=== PATIENT | female | born 1935 | race Caucasian/White ===

== ENCOUNTER 2019-09-11 18:21 | Observation (INO) | payer MEDICARE, BC ==
[2019-09-11 18:58] LABS: CHLORIDE,CL 104 mEq/L (98-106); SODIUM,NA 139 mEq/L (136-145)
--- NOTE | 2019-09-11 19:16 | EDM.PDOC ---
ED HPI GENERAL MEDICAL PROBLEM - General Chief Complaint: General Stated Complaint: dizzy Time Seen by Provider: 09/11/19 18:40 Source of Information: Reports: Patient History Limitations: Reports: Altered Mental Status - History of Present Illness INITIAL COMMENTS - FREE TEXT/NARRATIVE: Patient presents to ER with complaints of weakness, nausea/vomiting and confusion. Daughter states she has not been herself today. She vomited this am , eating minimal through the day, and is unsteady. Patient complains of feeling "fuzzy" in the head. Not aware of any fevers. Denies burning with urination. No abdominal pain. No diarrhea. Denies chest pain or shortness of breath. Daughter relates she had an appointment in the morning but was getting more confused as the day wore on. Onset: Gradual Duration: Day(s): Location: Reports: Generalized Associated Symptoms: Reports: Confusion, Loss of Appetite, Nausea/Vomiting, Weakness. Denies: Chest Pain, Cough, Fever/Chills, Shortness of Breath - Related Data Allergies Allergy/AdvReac Type Severity Reaction Status Date / Time Penicillins Allergy Hives Verified 09/11/19 18:29 Tetanus Vaccines and Toxoid Allergy Rash Verified 09/11/19 18:29 [Tetanus Vaccines & Toxoid] Past Medical History HEENT History: Reports: Cataract, Hard of Hearing Cardiovascular History: Reports: High Cholesterol, Hypertension Endocrine/Metabolic History: Reports: Diabetes, Type II, Hypothyroidism - Past Surgical History GI Surgical History: Reports: Appendectomy, Cholecystectomy Social & Family History - Family History Family Medical History: Noncontributory - Tobacco Use Smoking Status *Q: Never Smoker Second Hand Smoke Exposure: No ED ROS GENERAL - Review of Systems Review Of Systems: See Below Constitutional: Reports: Chills, Malaise, Weakness, Fatigue, Decreased Appetite. Denies: Fever HEENT: Reports: No Symptoms Respiratory: Denies: Shortness of Breath, Cough Cardiovascular: Reports: Edema. Denies: Chest Pain, Lightheadedness Endocrine: Reports: Fatigue GI/Abdominal: Reports: Nausea, Vomiting. Denies: Abdominal Pain, Constipation, Diarrhea : Denies: Dysuria Musculoskeletal: Reports: No Symptoms Skin: Reports: No Symptoms Neurological: Reports: Confusion, Weakness Psychiatric: Reports: Confusion ED EXAM, GENERAL - Physical Exam Exam: See Below Exam Limited By: Altered Mental Status General Appearance: Alert, WD/WN, No Apparent Distress Ears: Normal External Exam, Normal TMs Nose: Normal Inspection, Normal Mucosa, No Blood Throat/Mouth: Normal Inspection, Normal Oropharynx Head: Normocephalic Neck: Normal Inspection, Supple, Non-Tender Respiratory/Chest: No Respiratory Distress, Lungs Clear, Normal Breath Sounds Cardiovascular: Regular Rate, Rhythm GI/Abdominal: Normal Bowel Sounds, Soft, Non-Tender Extremities: Normal Inspection, Pedal Edema (1+ to left lower extremity) Skin Exam: Warm, Dry Course - Vital Signs Last Recorded V/S: Last Vital Signs Temp 97.5 F 09/11/19 18:38 Pulse 72 09/11/19 18:38 Resp 18 09/11/19 18:38 BP 153/70 H 09/11/19 18:38 Pulse Ox 97 09/11/19 18:38 - Orders/Labs/Meds Orders: Active Orders 24 hr Category Date Time Status EKG Documentation Completion [RC] STAT Care 09/11/19 18:33 Active CULTURE URINE [RM] Stat Lab 09/11/19 18:33 Received Labs: Laboratory Tests 09/11/19 09/11/19 09/11/19 Range/Units 18:33 18:35 18:35 WBC 10.0 (5.0-10.0) 10^3/uL RBC 3.80 L (4.00-5.50) 10^6/uL Hgb 11.4 L (12.0-16.0) g/dL Hct 35.0 L (37.0-47.0) % MCV 92.1 (82.0-94.0) fL MCH 30.0 (27.0-32.0) pg MCHC 32.6 L (33.0-38.0) g/dL RDW Coeff of [place] 13.0 (11.0-15.0) % Plt Count 312 (150-400) 10^3/uL Neut % (Auto) 69.3 (35-85) % Lymph % (Auto) 20.6 (10-55) % [place] % (Auto) 8.7 (0-16) % Eos % (Auto) 1.1 (0-5) % Baso % (Auto) 0.3 (0-3) % Neut # (Auto) 6.94 (1.80-7.00) 10^3/uL Lymph # (Auto) 2.06 (1.00-4.80) 10^3/uL [place] # (Auto) 0.87 H (0.00-0.80) 10^3/uL Eos # (Auto) 0.11 (0.00-0.45) 10^3/uL Baso # (Auto) 0.03 10^3/uL Sodium 139 (136-145) mEq/L Potassium 3.8 (3.5-5.0) mEq/L Chloride 104 (98-106) mEq/L Carbon Dioxide 26 (21-32) mmol/L BUN 14 (7-18) mg/dL Creatinine 0.8 (0.6-1.0) mg/dL Est Cr Clr Drug Dosing TNP Estimated GFR (MDRD) > 60 (>=60) mL/min Glucose 232 H D (75-99) mg/dL Calcium 8.9 (8.4-10.1) mg/dL Total Bilirubin 0.2 (0.0-1.0) mg/dL AST 16 (15-37) U/L ALT 15 (12-78) U/L Alkaline Phosphatase 57 (46-116) U/L Troponin I < 0.017 (0.00-0.06) ng/mL C-Reactive Protein 0.5 (0.2-0.8) mg/dL Total Protein 6.6 (6.4-8.2) g/dL Albumin 3.3 L (3.4-5.0) g/dL Urine Color Yellow (YELLOW) Urine Appearance Clear (CLEAR) Urine pH 5.5 (4.5-8.0) Ur Specific [place] 1.025 H (1.003-1.020) Urine Protein Negative (NEGATIVE) mg/dL Urine Glucose (UA) Negative (NEGATIVE) mg/dL Urine Ketones Negative (NEGATIVE) mg/dL Urine Occult Blood Negative (NEGATIVE) Urine Nitrite Negative (NEGATIVE) Urine Bilirubin Negative (NEGATIVE) Urine Urobilinogen 0.2 (0.2-1.0) EU/dL Ur Leukocyte Esterase Moderate H (NEGATIVE) Urine RBC Not seen (0-5) /HPF Urine WBC 10-20 H (0-5) /HPF Urine WBC Clumps Few H (NOT SEEN) /HPF Ur Epithelial Cells Moderate H (NOT SEEN) /HPF Urine Bacteria Few H (NOT SEEN) /HPF Urine Mucus Moderate H (NOT SEEN) /HPF - Re-Assessments/Exams Free Text/Narrative Re-Assessment/Exam: 09/11/19 19:20 Labs positive for UTI. Due to confusion, will admit to observation. Start IV fluids, antibiotics. Monitor blood sugars. Departure - Departure Time of Disposition: 19:21 Disposition: Refer to Observation Condition: Fair Clinical Impression: UTI, Urinary tract infectious disease - Discharge Information *PRESCRIPTION DRUG MONITORING PROGRAM REVIEWED*: No *COPY OF PRESCRIPTION DRUG MONITORING REPORT IN PATIENT TAHMINA: No Referrals: Mi Balderas, SONOGRAM TECHNICIAN [Primary Care Provider] - - Problem List & Annotations (1) UTI, Urinary tract infectious disease SNOMED Code(s): 36461087 Code(s): N39.0 - URINARY TRACT INFECTION, SITE NOT SPECIFIED Status: Acute Priority: High Current Visit: Yes - Problem List Review Problem List Initiated/Reviewed/Updated: Yes - My Orders Last 24 Hours: My Active Orders 09/11/19 18:33 EKG Documentation Completion [RC] STAT CULTURE URINE [RM] Stat - Assessment/Plan Admission H&P: Please use this note as an admission H&P Last 24 Hours: My Active Orders 09/11/19 18:33 EKG Documentation Completion [RC] STAT CULTURE URINE [RM] Stat Assessment:: UTI Altered Mental Status Plan: Admit observation. Start IV antibiotics. IV fluids. Monitor closely due to confusion.
[2019-09-11] MEDS ORDERED: Sodium Chloride 0.9% 1,000 ML IV SCH (20:03)
[2019-09-11] MEDS ORDERED: Sodium Chloride 0.9% 10 ML Syringe FLUSH PRN (20:03)
[2019-09-11] MEDS ORDERED: Ondansetron 4 MG/2 ML SDV IV PRN (20:03)
[2019-09-11] MEDS ORDERED: Acetaminophen 325 MG Tab PO PRN (20:03)
[2019-09-11] MEDS ORDERED: Ondansetron 4 MG Tab.DIS PO PRN (20:03)
[2019-09-11] MEDS: cefTRIAXone 1 GM Vial IVPUSH SCH (21:10)
[2019-09-11] MEDS: Enoxaparin 40 MG/0.4 ML Syringe SUBCUT SCH (21:46)
[2019-09-11] MEDS: Insulin Glargine,Human Rec. Analog 100 Units/ML 3 ML Pen SUBCUT SCH (21:46)
[2019-09-12 07:31] LABS: CHLORIDE,CL 108 mEq/L (98-106); SODIUM,NA 142 mEq/L (136-145)
[2019-09-12] MEDS ORDERED: Cholecalciferol (Vitamin D3) 25 MCG Tab PO SCH (08:00)
[2019-09-12] MEDS ORDERED: Aspirin 81 MG Tab.EC PO SCH (08:00)
[2019-09-12] MEDS ORDERED: Beta-Carotene (Vitamin A) w/Vitamin C & E plus Minerals Tab PO SCH (08:00)
[2019-09-12] MEDS ORDERED: PRESERVISION AREDS2 PO SCH (08:00)
[2019-09-12] MEDS ORDERED: Vitamin E (dl-alpha-tocopherol acetate) 400 Unit Cap PO SCH (08:00)
[2019-09-12] MEDS ORDERED: Fenofibrate 160 MG Tab PO SCH (08:00)
[2019-09-12] MEDS ORDERED: Sertraline 25 MG Tab PO SCH (08:00)
[2019-09-12] MEDS ORDERED: MAGNESIUM 500 MG PO SCH (08:00)
[2019-09-12] MEDS ORDERED: Losartan 25 MG Tab PO SCH (08:00)
[2019-09-12] MEDS ORDERED: Cyanocobalamin (Vitamin B12) 1,000 MCG Tab PO SCH (08:00)
[2019-09-12] MEDS ORDERED: Levothyroxine 50 MCG Tab PO SCH (08:00)
[2019-09-12] MEDS: FENOFIBRATE 145 MG PO SCH (08:15)
[2019-09-12] MEDS: Cyanocobalamin (Vitamin B12) 1,000 MCG Tab**OWN MED PO SCH (08:15)
[2019-09-12] MEDS: LOSARTAN 50 MG PO SCH (08:15)
[2019-09-12] MEDS: Aspirin 81 MG Tab.EC**OWN MED PO SCH (08:15)
[2019-09-12] MEDS: Sertraline 25 MG Tab**OWN MED PO SCH (08:15)
[2019-09-12] MEDS: VITAMIN D3 5000 UNIT PO SCH (08:15)
[2019-09-12] MEDS: VITAMIN E 400 UNIT PO SCH (08:15)
[2019-09-12] MEDS: Levothyroxine 50 MCG Tab**OWN MED PO SCH (08:15)
[2019-09-12] MEDS: MAGNESIUM 500 MG PO SCH (08:15)
[2019-09-12] MEDS: PRESERVISION AREDS2 PO SCH (08:15)
--- NOTE | 2019-09-12 14:57 | PCM.PN ---
- General Info Date of Service: 09/12/19 Admission Dx/Problem (Free Text): UTI altered mental status Functional Status: Reports: Pain Controlled, Tolerating Diet, Ambulating - Review of Systems General: Reports: Weakness, Fatigue HEENT: Reports: No Symptoms Pulmonary: Denies: Shortness of Breath, Cough Cardiovascular: Reports: Edema. Denies: Chest Pain, Lightheadedness Gastrointestinal: Denies: Abdominal Pain, Nausea, Vomiting Genitourinary: Reports: Frequency Musculoskeletal: Reports: No Symptoms Skin: Reports: No Symptoms Neurological: Denies: Confusion - Patient Data Vitals - Most Recent: Last Vital Signs Temp 97.8 F 09/12/19 12:00 Pulse 71 09/12/19 12:00 Resp 14 09/12/19 12:00 BP 143/63 H 09/12/19 12:00 Pulse Ox 97 09/12/19 12:00 Weight - Most Recent: 181 lb 12.8 oz Lab Results Last 24 Hours: Laboratory Results - last 24 hr 09/11/19 09/11/19 09/11/19 Range/Units 18:33 18:35 18:35 WBC 10.0 (5.0-10.0) 10^3/uL RBC 3.80 L (4.00-5.50) 10^6/uL Hgb 11.4 L (12.0-16.0) g/dL Hct 35.0 L (37.0-47.0) % MCV 92.1 (82.0-94.0) fL MCH 30.0 (27.0-32.0) pg MCHC 32.6 L (33.0-38.0) g/dL RDW Coeff of [place] 13.0 (11.0-15.0) % Plt Count 312 (150-400) 10^3/uL Neut % (Auto) 69.3 (35-85) % Lymph % (Auto) 20.6 (10-55) % [place] % (Auto) 8.7 (0-16) % Eos % (Auto) 1.1 (0-5) % Baso % (Auto) 0.3 (0-3) % Neut # (Auto) 6.94 (1.80-7.00) 10^3/uL Lymph # (Auto) 2.06 (1.00-4.80) 10^3/uL [place] # (Auto) 0.87 H (0.00-0.80) 10^3/uL Eos # (Auto) 0.11 (0.00-0.45) 10^3/uL Baso # (Auto) 0.03 10^3/uL Sodium 139 (136-145) mEq/L Potassium 3.8 (3.5-5.0) mEq/L Chloride 104 (98-106) mEq/L Carbon Dioxide 26 (21-32) mmol/L BUN 14 (7-18) mg/dL Creatinine 0.8 (0.6-1.0) mg/dL Est Cr Clr Drug Dosing TNP Estimated GFR (MDRD) > 60 (>=60) mL/min Glucose 232 H D (75-99) mg/dL POC Glucose (75-105) mg/dl Calcium 8.9 (8.4-10.1) mg/dL Total Bilirubin 0.2 (0.0-1.0) mg/dL AST 16 (15-37) U/L ALT 15 (12-78) U/L Alkaline Phosphatase 57 (46-116) U/L Troponin I < 0.017 (0.00-0.06) ng/mL C-Reactive Protein 0.5 (0.2-0.8) mg/dL Total Protein 6.6 (6.4-8.2) g/dL Albumin 3.3 L (3.4-5.0) g/dL Urine Color Yellow (YELLOW) Urine Appearance Clear (CLEAR) Urine pH 5.5 (4.5-8.0) Ur Specific [place] 1.025 H (1.003-1.020) Urine Protein Negative (NEGATIVE) mg/dL Urine Glucose (UA) Negative (NEGATIVE) mg/dL Urine Ketones Negative (NEGATIVE) mg/dL Urine Occult Blood Negative (NEGATIVE) Urine Nitrite Negative (NEGATIVE) Urine Bilirubin Negative (NEGATIVE) Urine Urobilinogen 0.2 (0.2-1.0) EU/dL Ur Leukocyte Esterase Moderate H (NEGATIVE) Urine RBC Not seen (0-5) /HPF Urine WBC 10-20 H (0-5) /HPF Urine WBC Clumps Few H (NOT SEEN) /HPF Ur Epithelial Cells Moderate H (NOT SEEN) /HPF Urine Bacteria Few H (NOT SEEN) /HPF Urine Mucus Moderate H (NOT SEEN) /HPF 09/12/19 09/12/19 09/12/19 Range/Units 06:45 06:45 07:37 WBC 8.6 (5.0-10.0) 10^3/uL RBC 3.65 L (4.00-5.50) 10^6/uL Hgb 10.9 L (12.0-16.0) g/dL Hct 33.7 L (37.0-47.0) % MCV 92.3 (82.0-94.0) fL MCH 29.9 (27.0-32.0) pg MCHC 32.3 L (33.0-38.0) g/dL RDW Coeff of [place] 13.0 (11.0-15.0) % Plt Count 284 (150-400) 10^3/uL Neut % (Auto) 62.6 (35-85) % Lymph % (Auto) 27.6 (10-55) % [place] % (Auto) 8.3 (0-16) % Eos % (Auto) 1.0 (0-5) % Baso % (Auto) 0.5 (0-3) % Neut # (Auto) 5.38 (1.80-7.00) 10^3/uL Lymph # (Auto) 2.37 (1.00-4.80) 10^3/uL [place] # (Auto) 0.71 (0.00-0.80) 10^3/uL Eos # (Auto) 0.09 (0.00-0.45) 10^3/uL Baso # (Auto) 0.04 10^3/uL Sodium 142 (136-145) mEq/L Potassium 3.9 (3.5-5.0) mEq/L Chloride 108 H (98-106) mEq/L Carbon Dioxide 28 (21-32) mmol/L BUN 10 (7-18) mg/dL Creatinine 0.6 (0.6-1.0) mg/dL Est Cr Clr Drug Dosing 52.67 Estimated GFR (MDRD) > 60 (>=60) mL/min Glucose 116 H D (75-99) mg/dL POC Glucose 101 (75-105) mg/dl Calcium 8.9 (8.4-10.1) mg/dL Total Bilirubin (0.0-1.0) mg/dL AST (15-37) U/L ALT (12-78) U/L Alkaline Phosphatase (46-116) U/L Troponin I (0.00-0.06) ng/mL C-Reactive Protein 0.4 (0.2-0.8) mg/dL Total Protein (6.4-8.2) g/dL Albumin (3.4-5.0) g/dL Urine Color (YELLOW) Urine Appearance (CLEAR) Urine pH (4.5-8.0) Ur Specific [place] (1.003-1.020) Urine Protein (NEGATIVE) mg/dL Urine Glucose (UA) (NEGATIVE) mg/dL Urine Ketones (NEGATIVE) mg/dL Urine Occult Blood (NEGATIVE) Urine Nitrite (NEGATIVE) Urine Bilirubin (NEGATIVE) Urine Urobilinogen (0.2-1.0) EU/dL Ur Leukocyte Esterase (NEGATIVE) Urine RBC (0-5) /HPF Urine WBC (0-5) /HPF Urine WBC Clumps (NOT SEEN) /HPF Ur Epithelial Cells (NOT SEEN) /HPF Urine Bacteria (NOT SEEN) /HPF Urine Mucus (NOT SEEN) /HPF Roberto Results Last 24 Hours: Microbiology 09/11/19 18:33 Urine Culture - Preliminary Urine, Voided Med Orders - Current: Current Medications Acetaminophen (Tylenol) 650 mg PO Q4H PRN PRN Reason: Pain (Mild 1-3)/fever Aspirin (Halfprin) 81 mg PO DAILY [facility] Last Admin: 09/12/19 08:15 Dose: 81 mg Ceftriaxone Sodium (Rocephin) 1 gm IVPUSH Q24H [facility] Last Admin: 09/11/19 21:10 Dose: 1 gm Cyanocobalamin (Vitamin B12) 1,000 mcg PO DAILY [facility] Last Admin: 09/12/19 08:15 Dose: 1,000 mcg Enoxaparin Sodium (Lovenox) 40 mg SUBCUT Q24H [facility] Last Admin: 09/11/19 21:46 Dose: 40 mg Sodium Chloride (Normal Saline) 1,000 mls @ 75 mls/hr IV ASDIRECTED [facility] Last Admin: 09/11/19 21:08 Dose: 75 mls/hr Insulin Glargine (Lantus Solostar) 15 units SUBCUT BEDTIME [facility] Last Admin: 09/11/19 21:46 Dose: 15 unit Levothyroxine Sodium (Synthroid) 50 mcg PO DAILY [facility] Last Admin: 09/12/19 08:15 Dose: 50 mcg Ondansetron HCl (Zofran) 4 mg IV Q4H PRN PRN Reason: Nausea/Vomiting Ondansetron HCl (Zofran Odt) 4 mg PO Q4H PRN PRN Reason: nausea, able to take PO Patient's Own Medication Preservision Areds2* * 2 each PO DAILY [facility] Last Admin: 09/12/19 08:15 Dose: 2 each Patient's Own Medication Fenofibrate 145 Mg 1 each PO DAILY [facility] Last Admin: 09/12/19 08:15 Dose: 1 each Patient's Own MedicationVitamin D3 5000 Units 1 each PO DAILY [facility] Last Admin: 09/12/19 08:15 Dose: 1 each Patient's Own MedicationLosartan 50 Mg 1 each PO DAILY [facility] Last Admin: 09/12/19 08:15 Dose: 1 each Patient's Own Medication Magnesium 500 Mg 1 each PO DAILY [facility] Last Admin: 09/12/19 08:15 Dose: 1 each Sertraline HCl (Zoloft) 25 mg PO DAILY [facility] Last Admin: 09/12/19 08:15 Dose: 25 mg Sodium Chloride (Saline Flush) 10 ml FLUSH ASDIRECTED PRN PRN Reason: Keep Vein Open Vitamin E (Vitamin E) 400 units PO DAILY [facility] Last Admin: 09/12/19 08:15 Dose: 400 units Discontinued Medications Aspirin (Halfprin) 81 mg PO DAILY [facility] Cholecalciferol (Vitamin D3) 125 mcg PO DAILY [facility] Cyanocobalamin (Vitamin B12) 1,000 mcg PO DAILY [facility] Fenofibrate (Fenofibrate) 160 mg PO DAILY [facility] Levothyroxine Sodium (Synthroid) 50 mcg PO DAILY [facility] Losartan Potassium (Cozaar) 50 mg PO DAILY [facility] Magnesium Oxide (Magnesium Oxide) 500 mg PO DAILY [facility] Multivitamins/Minerals (Prosight) 2 tab PO DAILY [facility] Patient's Own Medication Magnesium 500 Mg 1 each PO DAILY [facility] Patient's Own Medication Preservision Areds2* * 2 each PO DAILY [facility] Sertraline HCl (Zoloft) 25 mg PO DAILY [facility] Vitamin E (Vitamin E) 400 units PO DAILY [facility] - Exam General: Alert, Oriented HEENT: Mucous Membr. Moist/[place] Neck: Supple Lungs: Clear to Auscultation, Normal Respiratory Effort Cardiovascular: Regular Rate, Regular Rhythm GI/Abdominal Exam: Normal Bowel Sounds, Soft, Non-Tender Extremities: Normal Inspection, Pedal Edema (1+) Skin: Warm, Dry Neurological: No New Focal Deficit - Problem List & Annotations (1) UTI, Urinary tract infectious disease SNOMED Code(s): 91277447 Code(s): N39.0 - URINARY TRACT INFECTION, SITE NOT SPECIFIED Status: Acute Priority: High Current Visit: Yes (2) Altered mental status SNOMED Code(s): 576983236 Code(s): R41.82 - ALTERED MENTAL STATUS, UNSPECIFIED Status: Acute Current Visit: Yes - Problem List Review Problem List Initiated/Reviewed/Updated: Yes - My Orders Last 24 Hours: My Active Orders 09/11/19 18:33 CULTURE URINE [RM] Stat 09/11/19 19:26 Resuscitation Status Routine 09/11/19 20:03 Patient Status [ADT] Routine Oxygen Therapy [RC] .PRN Peripheral IV Care [RC] 0800,1999 Up With Assistance [RC] .PRN Vital Signs [RC] 0000,0400,0800,1200,1600,2000 Acetaminophen [Tylenol] 650 mg PO Q4H PRN Ondansetron [Zofran ODT] 4 mg PO Q4H PRN Ondansetron [Zofran] 4 mg IV Q4H PRN Sodium Chloride 0.9% [Normal Saline] 1,000 ml IV ASDIRECTED Sodium Chloride 0.9% [Saline Flush] 10 ml FLUSH ASDIRECTED PRN Peripheral IV Insertion Adult [OM.PC] Routine 09/11/19 20:08 Head wo Cont [CT] Routine 09/11/19 20:45 cefTRIAXone [Rocephin] 1 gm IVPUSH Q24H 09/11/19 21:22 Insulin Glarg,Human.Rec.Analog [LantUS Solostar] 15 units SUBCUT BEDTIME 09/11/19 21:23 Blood Glucose Check, Bedside [RC] 0730,2100 09/11/19 21:30 Enoxaparin [Lovenox] 40 mg SUBCUT Q24H 09/12/19 08:00 Aspirin [Halfprin] 81 mg PO DAILY Cyanocobalamin (Vitamin B12) [Vitamin B12] 1,000 mcg PO DAILY Levothyroxine [Synthroid] 50 mcg PO DAILY Patient's Own Medication [Ptom] 1 each PO DAILY Patient's Own Medication [Ptom] 1 each PO DAILY Patient's Own Medication [Ptom] 1 each PO DAILY Patient's Own Medication [Ptom] 1 each PO DAILY Patient's Own Medication [Ptom] 2 each PO DAILY Sertraline [Zoloft] 25 mg PO DAILY Vitamin E (dl, acetate) [Vitamin E] 400 units PO DAILY - Assessment Assessment:: UTI Altered mental status - Plan Plan:: Patient doing much better this am, oriented x3. Answers questions appropriately. Unable to recall all events of last evening, was disoriented to place and time, poor short term memory recall at that time. She denies any further nausea or vomiting. Does admit to some frequency with urination. Labs are stable this am, WBC normal, CRP negative. Is ambulating without difficult. Appetite is good. Will continue IV Rocephin yet today and tomorrow. Ambulate. Probable discharge home tomorrow.
[2019-09-12] MEDS: Insulin Glargine,Human Rec. Analog 100 Units/ML 3 ML Pen SUBCUT SCH (20:25)
[2019-09-12] MEDS: cefTRIAXone 1 GM Vial IVPUSH SCH (20:25)
[2019-09-12] MEDS: Enoxaparin 40 MG/0.4 ML Syringe SUBCUT SCH (20:32)
[2019-09-13] MEDS: Cyanocobalamin (Vitamin B12) 1,000 MCG Tab**OWN MED PO SCH (08:18)
[2019-09-13] MEDS: VITAMIN D3 5000 UNIT PO SCH (08:18)
[2019-09-13] MEDS: Aspirin 81 MG Tab.EC**OWN MED PO SCH (08:18)
[2019-09-13] MEDS: PRESERVISION AREDS2 PO SCH (08:18)
[2019-09-13] MEDS: Levothyroxine 50 MCG Tab**OWN MED PO SCH (08:18)
[2019-09-13] MEDS: Sertraline 25 MG Tab**OWN MED PO SCH (08:18)
[2019-09-13] MEDS: VITAMIN E 400 UNIT PO SCH (08:18)
[2019-09-13] MEDS: LOSARTAN 50 MG PO SCH (08:18)
[2019-09-13] MEDS: FENOFIBRATE 145 MG PO SCH (08:18)
[2019-09-13] MEDS: MAGNESIUM 500 MG PO SCH (08:18)
--- NOTE | 2019-09-13 10:20 | PCM.DCSUM1 ---
Discharge Summary - Hospital Course HPI Initial Comments: in with c/o acute confusion believed to be d/t UTI, the pt was given IVF and IV rocephin which has helped the pt, now she is alert and oriented back to her base line, the pt advised she is feeling much better, the cx did come back and has a <100,000 CC of strept bacteria. Diagnosis: Stroke: No Modified [place] Scale: No Symptoms at All Modified [place] Scale Score: 0 - Discharge Data Discharge Date: 09/13/19 Discharge Disposition: Home, Self-Care 01 Condition: Good - Referral to Home Health Primary Care Physician: Mi Balderas CONSOLIDATOR - Discharge Diagnosis/Problem(s) (1) UTI, Urinary tract infectious disease SNOMED Code(s): 10254447 ICD Code: N39.0 - URINARY TRACT INFECTION, SITE NOT SPECIFIED Status: Acute Priority: High Current Visit: Yes - Patient Summary/Data Hospital Course: the pt was given IVF and IV antibx which the pt responded quickly too, feels much better, is alert and oriented x 3 - Patient Instructions Diet: Heart Healthy Diet Showering/Bathing: May Shower Notify Provider of: Fever - Discharge Plan *PRESCRIPTION DRUG MONITORING PROGRAM REVIEWED*: No *COPY OF PRESCRIPTION DRUG MONITORING REPORT IN PATIENT TAHMINA: No Prescriptions/Med Rec: cephALEXin [Keflex] 500 mg PO Q8H 10 Days #30 cap Home Medications: Home Meds Aspirin [Ecotrin EC] 81 mg PO DAILY 09/11/19 [History] Cholecalciferol (Vitamin D3) [Vitamin D3] 5,000 unit PO DAILY 09/11/19 [History] Cyanocobalamin (Vitamin B12) [Vitamin B12] 1,000 mcg PO DAILY 09/11/19 [History] Fenofibrate Nanocrystallized [Fenofibrate] 145 mg PO DAILY 09/11/19 [History] Insulin Glargine,Hum.Rec.Anlog [Basaglar Kwikpen U-100] 15 unit SQ BEDTIME 09/11 [History] Levothyroxine [Synthroid] 50 mcg PO DAILY 09/11/19 [History] Losartan [Cozaar] 50 mg PO DAILY 09/11/19 [History] Magnesium Oxide [Magnesium] 500 mg PO DAILY 09/11/19 [History] Sertraline [Zoloft] 25 mg PO DAILY 09/11/19 [History] Vit C/E/Zn/Coppr/Lutein/Zeaxan [Preservision Areds 2 Softgel] 2 cap PO DAILY [History] Vitamin E 400 unit PO DAILY 09/11/19 [History] Acetaminophen [Tylenol] 650 mg PO Q4H PRN tablet 09/13/19 [Rx] cephALEXin [Keflex] 500 mg PO Q8H 10 Days #30 cap 09/13/19 [Rx] Oxygen Therapy Mode: Room Air Patient Handouts: Urinary Tract Infection, Adult Forms: ED Department Discharge Referrals: Mi Balderas, CONSOLIDATOR [Primary Care Provider] - - Discharge Summary/Plan Comment DC Time >30 min.: No - Patient Data Vitals - Most Recent: Last Vital Signs Temp 36.3 C 09/13/19 07:47 Pulse 70 09/13/19 07:47 Resp 14 09/13/19 07:47 BP 157/58 H 09/13/19 07:47 Pulse Ox 96 09/13/19 07:47 Weight - Most Recent: 82.463 kg Lab Results - Last 24 hrs: Laboratory Results - last 24 hr 09/12/19 Range/Units 20:23 POC Glucose 201 H (75-105) mg/dl SHEMAR Results - Last 24 hrs: Microbiology 09/11/19 18:33 Urine Culture - Final Urine, Voided Med Orders - Current: Current Medications Acetaminophen (Tylenol) 650 mg PO Q4H PRN PRN Reason: Pain (Mild 1-3)/fever Aspirin (Halfprin) 81 mg PO DAILY [facility] Last Admin: 09/13/19 08:18 Dose: 81 mg Ceftriaxone Sodium (Rocephin) 1 gm IVPUSH Q24H [facility] Last Admin: 09/12/19 20:25 Dose: 1 gm Cyanocobalamin (Vitamin B12) 1,000 mcg PO DAILY [facility] [place] Last Admin: 09/13/19 08:18 Dose: 1,000 mcg Enoxaparin Sodium (Lovenox) 40 mg SUBCUT Q24H [facility] [place] Last Admin: 09/12/19 20:32 Dose: 40 mg Sodium Chloride (Normal Saline) 1,000 mls @ 75 mls/hr IV ASDIRECTED [facility] [place] Last Admin: 09/11/19 21:08 Dose: 75 mls/hr Insulin Glargine (Lantus Solostar) 15 units SUBCUT BEDTIME [facility] [place] Last Admin: 09/12/19 20:25 Dose: 15 unit Levothyroxine Sodium (Synthroid) 50 mcg PO DAILY [facility] [place] Last Admin: 09/13/19 08:18 Dose: 50 mcg Ondansetron HCl (Zofran) 4 mg IV Q4H PRN PRN Reason: Nausea/Vomiting Ondansetron HCl (Zofran Odt) 4 mg PO Q4H PRN PRN Reason: nausea, able to take PO Patient's Own Medication Preservision Areds2* * 2 each PO DAILY [facility] [place] Last Admin: 09/13/19 08:18 Dose: 2 each Patient's Own Medication Fenofibrate 145 Mg 1 each PO DAILY [facility] [place] Last Admin: 09/13/19 08:18 Dose: 1 each Patient's Own MedicationVitamin D3 5000 Units 1 each PO DAILY [facility] [place] Last Admin: 09/13/19 08:18 Dose: 1 each Patient's Own MedicationLosartan 50 Mg 1 each PO DAILY [facility] [place] Last Admin: 09/13/19 08:18 Dose: 1 each Patient's Own Medication Magnesium 500 Mg 1 each PO DAILY [facility] [place] Last Admin: 09/13/19 08:18 Dose: 1 each Sertraline HCl (Zoloft) 25 mg PO DAILY [facility] [place] Last Admin: 09/13/19 08:18 Dose: 25 mg Sodium Chloride (Saline Flush) 10 ml FLUSH ASDIRECTED PRN PRN Reason: Keep Vein Open Vitamin E (Vitamin E) 400 units PO DAILY [facility] [place] Last Admin: 09/13/19 08:18 Dose: 400 units Discontinued Medications Aspirin (Halfprin) 81 mg PO DAILY [facility] [place] Cholecalciferol (Vitamin D3) 125 mcg PO DAILY [facility] [place] Cyanocobalamin (Vitamin B12) 1,000 mcg PO DAILY [facility] [place] Fenofibrate (Fenofibrate) 160 mg PO DAILY [facility] [place] Levothyroxine Sodium (Synthroid) 50 mcg PO DAILY [facility] [place] Losartan Potassium (Cozaar) 50 mg PO DAILY [facility] [place] Magnesium Oxide (Magnesium Oxide) 500 mg PO DAILY [facility] [place] Multivitamins/Minerals (Prosight) 2 tab PO DAILY [facility] [place] Patient's Own Medication Magnesium 500 Mg 1 each PO DAILY [facility] [place] Patient's Own Medication Preservision Areds2* * 2 each PO DAILY [facility] [place] Sertraline HCl (Zoloft) 25 mg PO DAILY [facility] Vitamin E (Vitamin E) 400 units PO DAILY [facility]
== END 2019-09-13 11:07 | disposition home or self-care (01) ==
LOC: CC.ED 18:21 → UNDOADMOB 19:17 → CC.MS 19:17
PROVIDERS: ADMIT Physician Assistant Medical; ATTEND Family Medicine
DX: N39.0 Urinary tract infection, site not specified (principal); E78.00 Pure hypercholesterolemia, unspecified; E11.9 Type 2 diabetes mellitus without complications; E03.9 Hypothyroidism, unspecified; I10 Essential (primary) hypertension; Z88.1 Allergy status to other antibiotic agents; Z88.7 Allergy status to serum and vaccine
CPT/HCPCS: 36415; 70450; 80048; 80053; 81001; 82962; 84484; 85025; 86140; 87086; 93005; 96372; 96374; 96376; 99285; A9270; G0378; J0696; J1650; J1815; J7030; 93010; 99217; 99219; 99225

== ENCOUNTER 2021-12-03 19:58 | Emergency (ER) | payer MEDICARE, BC ==
[2021-12-03] MEDS: cefTRIAXone 1 GM Vial IM ONE (20:31)
[2021-12-03] MEDS: Take Home: Cephalexin 500 MG Cap, 4 Cap Pack PO ONE (20:32)
== END 2021-12-03 20:48 | disposition home or self-care (01) ==
LOC: CC.ED 19:58
DX: N39.0 Urinary tract infection, site not specified (principal); E11.9 Type 2 diabetes mellitus without complications; E78.00 Pure hypercholesterolemia, unspecified; I10 Essential (primary) hypertension; E03.9 Hypothyroidism, unspecified; Z88.0 Allergy status to penicillin; Z88.7 Allergy status to serum and vaccine; Z79.82 Long term (current) use of aspirin; Z79.899 Other long term (current) drug therapy; Z79.4 Long term (current) use of insulin
CPT/HCPCS: 81001; 87086; 87088; 87186; 96372; 99283; 99284; A9270-GY; J0696

== ENCOUNTER 2021-12-17 10:37 | Observation (INO) | payer MEDICARE, BC ==
[2021-12-17 11:27] LABS: CHLORIDE,CL 104 mEq/L (98-106); SODIUM,NA 140 mEq/L (136-145)
[2021-12-17] MEDS ORDERED: Non-Formulary Medication 1 Each (Acetaminophen [Tylenol] 325 MG Tablet) PO PRN (12:11)
[2021-12-17] MEDS: Sodium Chloride 0.9% 1,000 ML IV SCH (13:12)
[2021-12-18] MEDS: Sodium Chloride 0.9% 1,000 ML IV SCH (02:30)
[2021-12-18] MEDS ORDERED: METFORMIN HCL 500 MG PO SCH (08:00)
[2021-12-18] MEDS ORDERED: Non-Formulary Medication 1 Each (Cholecalciferol (Vitamin D3) [Vitamin D3] 5,000 UNIT Tabl PO SCH (08:00)
[2021-12-18] MEDS ORDERED: ASPIRIN 81 MG PO SCH (08:00)
[2021-12-18] MEDS ORDERED: Non-Formulary Medication 1 Each (Levothyroxine [Synthroid] 50 MCG Tablet) PO SCH (08:00)
[2021-12-18] MEDS ORDERED: Non-Formulary Medication 1 Each (Vitamin E [Vitamin E] 400 UNIT Capsule) PO SCH (08:00)
[2021-12-18] MEDS ORDERED: Non-Formulary Medication 1 Each (Losartan [Cozaar] 50 MG Tablet) PO SCH (08:00)
[2021-12-18] MEDS ORDERED: Non-Formulary Medication 1 Each (Cyanocobalamin (Vitamin B12) [Vitamin B12] 1,000 MCG Tabl PO SCH (08:00)
[2021-12-18] MEDS ORDERED: DONEPEZIL HCL 5 MG PO SCH (08:00)
[2021-12-18] MEDS ORDERED: FENOFIBRATE NANOCRYSTALLIZED PO SCH (08:00)
[2021-12-18] MEDS ORDERED: Non-Formulary Medication 1 Each (Magnesium Oxide [Magnesium] 500 MG Capsule) PO SCH (08:00)
[2021-12-18] MEDS ORDERED: Non-Formulary Medication 1 Each (Sertraline [Zoloft] 25 MG Tablet) PO SCH (08:00)
[2021-12-18] MEDS ORDERED: Non-Formulary Medication 1 Each (Vit C/E/Zn/Coppr/Lutein/Zeaxan [Preservision Areds 2 Soft PO SCH ×2 (08:00)
== END 2021-12-18 12:00 | disposition home or self-care (01) ==
LOC: CC.ED 10:37 → CC.MS 12:00 → UNDOADMOB 12:00 → CC.MS 12:10 → UNDODISOB 12-18 12:00
PROVIDERS: ADMIT Nurse Practitioner Family; ATTEND Family Medicine
DX: R55 Syncope and collapse (principal); E11.9 Type 2 diabetes mellitus without complications; E78.00 Pure hypercholesterolemia, unspecified; I10 Essential (primary) hypertension; E03.9 Hypothyroidism, unspecified; G30.9 Alzheimer's disease, unspecified; F02.80 Dementia in other diseases classified elsewhere, unspecified severity, without behavioral disturbance, psychotic disturbance, mood disturbance, and anxiety; Z88.0 Allergy status to penicillin; Z88.7 Allergy status to serum and vaccine; Z87.440 Personal history of urinary (tract) infections; Z79.82 Long term (current) use of aspirin; Z79.84 Long term (current) use of oral hypoglycemic drugs; Z79.890 Hormone replacement therapy; Z79.899 Other long term (current) drug therapy; W19.XXXA Unspecified fall, initial encounter
CPT/HCPCS: 36415; 80053; 81001; 82947; 85025; 99285; G0378; J7030

== ENCOUNTER 2022-03-26 13:16 | Emergency (ER) | payer MEDICARE, BC ==
[2022-03-26] MEDS ORDERED: Take Home: Nitrofurantoin Monohydrate/Macrocrystalline 100 MG, 2 Cap Pack PO ONE ×2 (14:54→14:55)
[2022-03-26 15:01] LABS: CHLORIDE,CL 99 mEq/L (98-106); SODIUM,NA 132 mEq/L (136-145)
== END 2022-03-26 15:11 | disposition home or self-care (01) ==
LOC: CC.ED 13:16
DX: N39.0 Urinary tract infection, site not specified (principal); E78.00 Pure hypercholesterolemia, unspecified; I10 Essential (primary) hypertension; E11.9 Type 2 diabetes mellitus without complications; E03.9 Hypothyroidism, unspecified; Z88.0 Allergy status to penicillin; Z88.7 Allergy status to serum and vaccine; Z79.82 Long term (current) use of aspirin; Z79.84 Long term (current) use of oral hypoglycemic drugs; Z79.899 Other long term (current) drug therapy
CPT/HCPCS: 36415; 80053; 81001; 82947; 83605; 84484; 85025; 87086; 87088; 87186; 99283; 99284; A9270

== ENCOUNTER 2023-02-10 09:50 | Emergency (ER) | payer MEDICARE, BC | END 2023-02-10 10:55 | disposition home or self-care (01) | LOC: CC.ED 09:50 | DX: B37.2 Candidiasis of skin and nail (principal); E78.00 Pure hypercholesterolemia, unspecified; I10 Essential (primary) hypertension; E11.9 Type 2 diabetes mellitus without complications; E03.9 Hypothyroidism, unspecified; Z88.0 Allergy status to penicillin; Z88.7 Allergy status to serum and vaccine; Z79.82 Long term (current) use of aspirin | CPT/HCPCS: 36415; 80053; 83735; 85025; 86140; 99283; 99284 ==

== ENCOUNTER 2023-02-22 18:34 | Emergency (ER) | payer MEDICARE, BC ==
[2023-02-22] MEDS ORDERED: Bacitracin/Neomycin/Polymyxin B Oint 0.9 GM U/D Packet TOP ONE (19:21)
== END 2023-02-22 20:15 | disposition home or self-care (01) ==
LOC: CC.ED 18:34
DX: S16.1XXA Strain of muscle, fascia and tendon at neck level, initial encounter (principal); S00.83XA Contusion of other part of head, initial encounter; S50.11XA Contusion of right forearm, initial encounter; M25.531 Pain in right wrist; E11.9 Type 2 diabetes mellitus without complications; E03.9 Hypothyroidism, unspecified; I10 Essential (primary) hypertension; Z88.0 Allergy status to penicillin; Z88.7 Allergy status to serum and vaccine; Z79.82 Long term (current) use of aspirin; Z79.899 Other long term (current) drug therapy; W06.XXXA Fall from bed, initial encounter
CPT/HCPCS: 70450; 72125; 73080-RT; 73110-RT; 99284

== ENCOUNTER 2024-07-21 12:50 | Emergency (ER) | payer MEDICARE, BC ==
[2024-07-21 13:39] LABS: APPEARANCE,URINE CLEAR (CLEAR); BILIRUBIN,URINE NEGATIVE (NEGATIVE); COLOR,URINE YELLOW (YELLOW); GLUCOSE,URINE NEGATIVE (NEGATIVE); KETONES,URINE NEGATIVE (NEGATIVE); LEUKOCYTE ESTERASE,URINE TRACE (NEGATIVE); NITRITE,URINE NEGATIVE (NEGATIVE); OCCULT BLOOD,URINE NEGATIVE (NEGATIVE); PROTEIN,URINE NEGATIVE (NEGATIVE); UROBILINOGEN,URINE 0.2 EU/dL (0.2-1.0)
[2024-07-21 13:48] LABS: BACTERIA,URINE OCCASIONAL /HPF (NOT SEEN); RBC,URINE 0-5 /HPF (0-5); SQUAMOUS EPITHELIAL CELLS,UR MANY /HPF (NOT SEEN)
[2024-07-21 13:53] LABS: BASOPHILS ABSOLUTE AUTO 0.04 10^3/uL (0.00-0.50); BASOPHILS PERCENT AUTO 0.6 % (0-1); EOSINOPHILS ABSOLUTE AUTO 0.02 10^3/uL (0.00-1.50); EOSINOPHILS PERCENT AUTO 0.3 % (0-6); HEMATOCRIT 36.8 % (37.0-47.0); HEMOGLOBIN 12.1 g/dL (12.0-16.0); IMMATURE GRAN ABSOLUTE AUTO 0.02 10^3/uL (0.00-0.49); IMMATURE GRAN PERCENT AUTO 0.3 % (0.0-4.9); LYMPHOCYTES ABSOLUTE AUTO 0.54 10^3/uL (0.60-5.00); LYMPHOCYTES PERCENT AUTO 8.2 % (24-44); MEAN CORPUSCULAR HEMOGLOBIN 29.7 pg (27.0-32.0); MEAN CORPUSCULAR HGB CONC 32.9 g/dL (32.0-36.0); MEAN CORPUSCULAR VOLUME 90.4 fL (83.0-97.0); MONOCYTES ABSOLUTE AUTO 0.58 10^3/uL (0.00-1.50); MONOCYTES PERCENT AUTO 8.8 % (0-10); NEUTROPHILS ABSOLUTE AUTO 5.37 x10^3/uL (1.80-8.00); NEUTROPHILS PERCENT AUTO 81.8 % (41-71); PLATELET COUNT,PLT 207 10^3/uL (150-400); RED BLOOD CELL COUNT 4.07 x10^6/uL (4.00-5.50); WHITE BLOOD CELL COUNT,WBC 6.6 10^3/uL (4.0-11.0)
[2024-07-21 14:06] LABS: ALBUMIN 3.5 g/dL (3.4-5.0); BILIRUBIN TOTAL 0.4 mg/dL (0.0-1.0); C-REACTIVE PROTEIN 2.29 mg/dL (<=0.50); CALCIUM 9.2 mg/dL (8.4-10.1); CREATININE 0.8 mg/dL (0.6-1.0); EST CRCL DRUG DOSING (CG) 36.68 mL/min; POTASSIUM,K 4.3 mEq/L (3.5-5.0); PROTEIN TOTAL,TP 6.8 g/dL (6.4-8.2)
[2024-07-21 14:34] LABS: CORONAVIRUS COVID-19 NAA NEGATIVE (NEGATIVE); INFLUENZA A NAA NEGATIVE (NEGATIVE); INFLUENZA B NAA NEGATIVE (NEGATIVE); RESPIRATORY SYNCYTIAL VIR NAA NEGATIVE (NEGATIVE)
[2024-07-21] MEDS: Ondansetron 4 MG Tab.DIS PO ONE (15:01)
[2024-07-21] MEDS: Iopamidol 755 Mg/ML 100 ML Bottle IVPUSH ONE (15:12)
== END 2024-07-21 17:10 | disposition home or self-care (01) ==
LOC: CC.ED 12:50
DX: R10.84 Generalized abdominal pain (principal); R11.0 Nausea; I10 Essential (primary) hypertension; E11.9 Type 2 diabetes mellitus without complications; E03.9 Hypothyroidism, unspecified; Z90.49 Acquired absence of other specified parts of digestive tract; Z79.899 Other long term (current) drug therapy; Z88.0 Allergy status to penicillin; Z88.7 Allergy status to serum and vaccine
CPT/HCPCS: 0241U; 36415; 74177; 80053; 81001; 83690; 84484; 85025; 86140; 93005; 93010; 99284; A9270-GY; Q9967